=== PATIENT | female | born 1985 | race Asian ===

== ENCOUNTER 2016-11-03 09:21 | Outpatient (CLI) | payer BC ==
[~2016-11-03] VITALS: Ht 167.6 cm; Wt 92.0 kg
[2016-11-03] MEDS ORDERED: LOPERAMIDE 2 MG CAPSULE PO PRN (11:30)
== END 2016-11-03 12:14 | disposition home or self-care (01) ==
LOC: LDOP 09:21
PROVIDERS: ATTEND Obstetrics & Gynecology
DX: O26.893 Other specified pregnancy related conditions, third trimester (principal); R03.0 Elevated blood-pressure reading, without diagnosis of hypertension; R53.1 Weakness; R19.7 Diarrhea, unspecified; Z3A.37 37 weeks gestation of pregnancy
CPT/HCPCS: 59025; 81001; 87324; 99211; G0463

== ENCOUNTER 2016-11-10 05:00 | Inpatient (IN) | payer BC ==
[~2016-11-10] VITALS: Ht 167.6 cm; Wt 94.0 kg
[2016-11-10] MEDS ORDERED: OXYTOCIN 30U/ 0.9% NaCL 500ML 500 ML IV PRN (05:01)
[2016-11-10] MEDS: D5%-LACTATED RINGERS 1,000 ML IV SCH ×2 (05:01→13:01)
[2016-11-10] MEDS ORDERED: OXYTOCIN 30U/ 0.9% NaCL 500ML 500 ML IV ONE (05:01)
[2016-11-10] MEDS ORDERED: OXYTOCIN 30U/ 0.9% NaCL 500ML 500 ML ONE ×2 (05:11→16:29)
[2016-11-10] MEDS ORDERED: NEWBORN KIT ONE (05:11)
[2016-11-10] MEDS: LACTATED RINGERS 1,000 ML IV SCH ×5 (05:25→23:14)
[2016-11-10 05:30] LABS: HEMOGLOBIN 10.2 g/dL (11.7-16.4)
[2016-11-10] MEDS ORDERED: TERBUTALINE 1 MG/ML, 1ML IVPush PRN (05:30)
[2016-11-10] MEDS ORDERED: FENTANYL PF 100 MCG/2ML IV PRN (05:30)
[2016-11-10] MEDS ORDERED: FENTANYL PF 100 MCG/2ML IVPush PRN (05:30)
[2016-11-10] MEDS ORDERED: ONDANSETRON 2MG/ML, 2ML IVPush PRN (05:30)
[2016-11-10] MEDS ORDERED: CALCIUM CARBONATE 500 MG TAB.CHEW PO PRN (05:30)
[2016-11-10] MEDS ORDERED: MISOPROSTOL 25 MCG TABLET VG PRN (05:30)
[2016-11-10] MEDS ORDERED: MISOPROSTOL 25 MCG TABLET ONE (05:31)
[2016-11-10 05:54] LABS: BLOOD UREA NITROGEN 7 mg/dL (7-18)
[2016-11-10 06:00] LABS: ASPARTATE AMINO TRANSFERASE 21 U/L (15-37)
[2016-11-10] MEDS ORDERED: FENTANYL PF 100 MCG/2ML ONE ×2 (08:33→08:35)
[2016-11-10] MEDS ORDERED: BUPIVACAINE 0.25% ONE ×2 (08:33→08:35)
[2016-11-10] MEDS ORDERED: FENTANYL/BUPIV./NS/PF 250 ML EPIDCONT ONE ×2 (08:33→08:35)
[2016-11-10] MEDS ORDERED: LIDOCAINE/PF 1.5%-EPI 1:200K, 30ML ONE (08:35)
[2016-11-10] MEDS ORDERED: LIDOCAINE 1%, 20ML ONE (10:04)
[2016-11-10] MEDS ORDERED: LACTATED RINGERS 1,000 ML INTUTE PRN (14:30)
[2016-11-10] MEDS ORDERED: LACTATED RINGERS 1,000 ML INTUTE SCH (14:30)
[2016-11-10] MEDS ORDERED: MISOPROSTOL 200 MCG TABLET SL PRN (15:30)
[2016-11-10] MEDS ORDERED: OXYcodone/APAP 5/325MG TABLET PO PRN (15:30)
[2016-11-10] MEDS ORDERED: ACETAMINOPHEN 325 MG TABLET PO PRN (15:30)
[2016-11-10] MEDS ORDERED: ONDANSETRON 2MG/ML, 2ML IV PRN (15:30)
[2016-11-10] MEDS ORDERED: IBUPROFEN 600 MG TABLET ONE (16:22)
[2016-11-10] MEDS: IBUPROFEN 600 MG TABLET PO PRN (16:25)
[2016-11-10] MEDS: OXYTOCIN 30U/ 0.9% NaCL 500ML 500 ML IV SCH ×2 (16:32→19:27)
[2016-11-10 17:45] VITALS: BP 140/82
[2016-11-10 20:05] VITALS: BP 152/81
[2016-11-10] MEDS ORDERED: FENTANYL/BUPIV./NS/PF 250 ML EPIDCONT SCH (21:11)
[2016-11-10] MEDS ORDERED: LACTATED RINGERS 1,000 ML IVBOLUS PRN (21:30)
[2016-11-10] MEDS: OXYcodone/APAP 5/325MG TABLET PO PRN (21:32)
[2016-11-11 00:10] VITALS: BP 147/89
[2016-11-11 00:11] LABS: HEMOGLOBIN 10.7 g/dL (11.7-16.4)
[2016-11-11] MEDS: IBUPROFEN 600 MG TABLET PO PRN ×4 (00:20→23:37)
[2016-11-11 00:30] LABS: DIFF TOTAL CELLS COUNTED 100 CELL DIFF
[2016-11-11 00:32] LABS: VERIFY COUNTS? YES
[2016-11-11 00:33] LABS: ANISOCYTOSIS 1+; MICROCYTOSIS 1+; OVALOCYTES 1+
[2016-11-11 00:34] LABS: LARGE PLATELETS 1+
[2016-11-11] MEDS: OXYcodone/APAP 5/325MG TABLET PO PRN ×6 (01:54→23:37)
[2016-11-11 04:05] VITALS: BP 133/72
[2016-11-11 06:37] VITALS: BP 150/99
[2016-11-11] MEDS ORDERED: PRENATAL VIT/IRON/FA 1 EACH TABLET ONE (07:01)
[2016-11-11] MEDS: DOCUSATE 100 MG CAPSULE PO PRN (07:07)
[2016-11-11] MEDS ORDERED: PRENATAL VIT/IRON/FA 1 EACH TABLET PO SCH (09:00)
[2016-11-11 11:01] VITALS: BP 154/98
[2016-11-11] MEDS ORDERED: ONDANSETRON ODT 4 MG ONE (12:36)
[2016-11-11] MEDS: ONDANSETRON ODT 4 MG PO PRN ×2 (12:39→18:31)
[2016-11-11 13:57] VITALS: BP 147/87
[2016-11-11 20:00] VITALS: BP 140/89
[2016-11-12] MEDS: OXYcodone/APAP 5/325MG TABLET PO PRN ×2 (04:07→08:17)
[2016-11-12 07:00] VITALS: BP 166/89
[2016-11-12] MEDS: IBUPROFEN 600 MG TABLET PO PRN (08:17)
[2016-11-12] MEDS: DOCUSATE 100 MG CAPSULE PO PRN (08:17)
[2016-11-12] MEDS ORDERED: OXYC-302 PO (09:49)
[2016-11-12] MEDS ORDERED: IBUP-1222 PO (09:50)
== END 2016-11-12 10:27 | disposition home or self-care (01) | DRG 775 ==
LOC: LDIP 05:00 → 2NW 17:35
PROVIDERS: ADMIT Obstetrics & Gynecology; ATTEND Obstetrics & Gynecology
PROC: 10E0XZZ Delivery of Products of Conception, External Approach (ICD-10-PCS; principal; 2016-11-10)
PROC: 00HU33Z Insertion of Infusion Device into Spinal Canal, Percutaneous Approach (ICD-10-PCS; 2016-11-10)
PROC: 3E0R3CZ (ICD-10-PCS; 2016-11-10)
DX: O69.81X0 Labor and delivery complicated by cord around neck, without compression, not applicable or unspecified (principal); Z3A.39 39 weeks gestation of pregnancy; Z37.0 Single live birth
CPT/HCPCS: 36415; 80053; 81001; 84550; 85025; 86850; 86900; J3010; J3490; Q0162; J2590; J7120

== ENCOUNTER 2017-07-10 11:49 | Emergency (ER) | payer OTHER, BC ==
[~2017-07-10] VITALS: Ht 167.6 cm; Wt 80.0 kg
[~2017-07-10 11:49] MED LIST: IBUP-1222 PO; OXYC-302 PO
[2017-07-10] MEDS ORDERED: SODIUM CHLORIDE 0.9% 1,000ML IVBOLUS ONE (12:30)
[2017-07-10 12:47] LABS: HEMATOCRIT 39.7 % (34.6-47.8); HEMOGLOBIN 13.2 g/dL (11.7-16.4); WHITE BLOOD COUNT 6.4 x10^3/uL (3.4-10)
[2017-07-10 12:56] LABS: BLOOD UREA NITROGEN 9 mg/dL (7-18)
[2017-07-10 13:02] LABS: ASPARTATE AMINO TRANSFERASE 17 U/L (15-37)
[2017-07-10 13:56] VITALS: BP 122/76
== END 2017-07-10 14:01 | disposition home or self-care (01) ==
LOC: ED 12:52
DX: R19.7 Diarrhea, unspecified (principal); R11.0 Nausea
CPT/HCPCS: 36415; 80053; 81003; 83690; 84703; 85025; 96360; 99284; J7030

== ENCOUNTER 2017-12-01 10:01 | Emergency (ER) | payer BC, OTHER ==
[~2017-12-01] VITALS: Ht 167.6 cm; Wt 76.0 kg
[2017-12-01 10:03] VITALS: BP 156/104
[2017-12-01] MEDS ORDERED: KETOROLAC 30 MG/1 ML IM ONE (11:00)
[2017-12-01] MEDS ORDERED: METHOCARBAMOL 750 MG TABLET PO ONE (11:00)
[2017-12-01] MEDS ORDERED: METHOCARBAMOL 750 MG TABLET ONE (11:28)
[2017-12-01] MEDS ORDERED: KETOROLAC 30 MG/1 ML ONE (11:28)
== END 2017-12-01 12:33 | disposition home or self-care (01) ==
LOC: ED 12:30
DX: S39.012A Strain of muscle, fascia and tendon of lower back, initial encounter (principal); X58.XXXA Exposure to other specified factors, initial encounter; Y93.89 Activity, other specified; Y99.8 Other external cause status; Y92.89 Other specified places as the place of occurrence of the external cause
CPT/HCPCS: 96372; 99283; J1885

== ENCOUNTER 2019-02-14 13:12 | Emergency (ER) | payer OTHER ==
[~2019-02-14] VITALS: Ht 167.6 cm; Wt 77.4 kg
[2019-02-14 13:25] VITALS: BP 134/98
[2019-02-14] MEDS ORDERED: METHOCARBAMOL 750 MG TABLET ONE (13:52)
[2019-02-14] MEDS ORDERED: KETOROLAC 30 MG/1 ML ONE (13:52)
[2019-02-14] MEDS ORDERED: KETOROLAC 30 MG/1 ML IM ONE (14:00)
[2019-02-14] MEDS ORDERED: METHOCARBAMOL 750 MG TABLET PO ONE (14:00)
--- NOTE | 2019-02-14 14:07 | NUR ---
[facility] CALLED TO TAKE REPORT FROM PT ABOUT ACCIDENT. [facility] HERE
--- NOTE | 2019-02-14 14:36 | NUR ---
PT STILL HAS NOT GONE TO RAD. [facility] CONTACTED, PT IS IN LINE. PT STILL IN PAIN. ERP AWARE, ORDERS PLACED.
[2019-02-14] MEDS ORDERED: HYDROcodone/APAP 5/325 TABLET ONE (14:40)
[2019-02-14] MEDS ORDERED: HYDROcodone/APAP 5/325 TABLET PO ONE (15:00)
--- NOTE | 2019-02-14 15:07 | NUR ---
CALLED CT AGAIN TO SEE WHERE PT IS ON LIST. STATED PT IS NEXT. PT GOING TO CT AT THIS TIME.
--- NOTE | 2019-02-14 15:39 | NUR ---
RAD OF LUMBAR SPINE NOT SHOWING PENDING. RAD CONTACTED. STATED WILL LOOK IN TO IT, BY IMAGES SHOULD HAVE BEEN DONE.
== END 2019-02-14 16:08 | disposition home or self-care (01) ==
LOC: ED 15:52
DX: S16.1XXA Strain of muscle, fascia and tendon at neck level, initial encounter (principal); V49.49XA Driver injured in collision with other motor vehicles in traffic accident, initial encounter; Y93.89 Activity, other specified; Y92.89 Other specified places as the place of occurrence of the external cause; Y99.8 Other external cause status
CPT/HCPCS: 72110; 72125; 96372; 99284; J1885